=== PATIENT | female | born 1965 | race Two or more races ===

== ENCOUNTER 2018-08-03 18:26 | Emergency (ER) | payer SELFPAY ==
[~2018-08-03] VITALS: Ht 157.5 cm; Wt 59.0 kg
--- NOTE | 2018-08-03 18:35 | NUR ---
PT BIBS. COMP OF HAVING "LEFT EAR PAIN, SOMETHING IS STUCK". NO SOB NOTED. NO ACUTE DISTRESS AT THIS TIME. PTAOX4, AMBULATORY W,STEADY GAIT, -DIZZINESS -N/V. AWAITING MD BRITO.
[2018-08-03] MEDS ORDERED: LIDOCAINE VISCOUS 2% UD 15 ML UDC ONE (19:42)
[2018-08-03] MEDS ORDERED: LIDOCAINE VISCOUS 2% UD 15 ML UDC MM ONE (20:00)
[2018-08-03] MEDS ORDERED: DOCUSATE SODIUM LIQ 100 MG/10 ML UDC ONE (20:29)
[2018-08-03] MEDS ORDERED: DOCUSATE SODIUM LIQ 100 MG/10 ML UDC NG ONE (20:30)
[2018-08-03] MEDS ORDERED: HYDROCODONE/APAP 5/325MG 1 EACH TABLET ONE (20:52)
[2018-08-03] MEDS ORDERED: HYDROCODONE/APAP 5/325MG 1 EACH TABLET PO ONE (21:00)
[2018-08-03 21:48] VITALS: BP 128/76
== END 2018-08-03 21:50 | disposition home or self-care (01) ==
LOC: ER 18:26
DX: H61.23 Impacted cerumen, bilateral (principal); G89.29 Other chronic pain
CPT/HCPCS: 69209; 99283; A4606; A6403